=== PATIENT | female | born 1990 | race Caucasian/White ===

== ENCOUNTER 2025-06-25 16:45 | Emergency (ER) | payer SELFPAY ==
[2025-06-25 16:55] VITALS: BP 106/76; PULSE 81; RESP 18; TEMP 36.9; O2SAT 99; BMI 29.1
--- OUTSIDE RECORDS SUMMARY | 2025-06-25 17:10 | XMS_ITS | Clinical Summary ---
Author Organization [facility] Address [address] [place] [address] Care Team Providers Care New Account Interviewer Name Role Phone Unavailable Primary Care Provider Unavailabl e Source Comments [facility] is fully rolled out with thefollowing exceptions:General Clinical Research [facility] Social History Tobacco Use Types Packs/Day Years Used Date Smoking Tobacco: Never Assessed Comments Unknown Sex and Gender Information Value Date Recorded Sex Assigned at Not on file Legal Sex Female 2:07 PM EDT Gender Identity Not on file Sexual Orientation Not on file Plan of Treatment Health Maintenance Due Date Last Done Comments MMR IMMUNIZATION (1 of 1 - S tandard series) 1989 DTAP/Tdap/Td IMMUNIZATION (1 - Tdap) 1995 VARICELLA IMMUNIZATION (1 of 2 - 13+ 2-dose series) 2001 HEPATITIS B IMMUNIZATION (1 of 3 - 19+ 3-dose series) 2007 HPV IMMUNIZATION (1 - 3-dose SCDM series) 2015 COVID-19 Vaccine ( - 2023-2 5 season) 2024 AMB SEASONAL FLU VACCINE (#1) 08/25/2025 HIB IMMUNIZATION Aged Out No longer e ligible based on patient's age to complete this topic IPV IMMUNIZATION Aged Out No longer e ligible based on patient's age to complete this topic MCV4 IMMUNIZATION Aged Out No longer eligible based on patient's age to complete this topic MENINGOCOCCAL B VACCINE Aged Out No l onger eligible based on patient's age to complete this topic PNEUMOCOCCAL IMMUNIZATION Aged Out No longer eligible based on patient's age to complete this topic Respiratory Syncytial Virus (RSV) <20mo Aged Out No longer eligible b ased on patient's age to complete this topic
--- OUTSIDE RECORDS SUMMARY | 2025-06-25 17:10 | XMS_ITS ---
Author Organization [facility] Address [address] [place] [address] Care Team Providers Care Briquetting Machine Operator Name Role Phone Unavailable Primary Care Provider Unavailabl e Transplant Episode Kidney Potential Donor [facility] ([place], [place]) - [facility] Referred on 02/02/2025 Marked as Deferred on 02/05/2025 Reason: Medical Contraindication Kidney CoordinatorBarbie Schultz R.N. Phone: N/A Fax: N/A Email: N/A Care Team Name Role Phone Fax Email Barbie Schultz R.N. Kidney Coordinator N/A N/A N/A Events Pre-Donation Referred: 02/02/2025
--- OUTSIDE RECORDS SUMMARY | 2025-06-25 17:10 | XMS_ITS | Clinical Summary ---
Author Organization [facility] Address [address] [place] [address] Phone Care Team Providers Care Apartment Rental Clerk Name Role Phone Flo Hernandez MD Primary Care Provider [phone] Renata Magaña MD Unavailable [phone] RadCarlie parham MD Unavailable [phone] Allergies Active Allergy Reactions Criticality Noted Date Comments Dhe Other (See Comments) High 11/01/2013 Heart rate dropped into the 30's Sulfa (Sulfonamide Antibiotics) Other (See Comments) 05/07/2016 Chest pain to two other medications containing sulfa. Has not reacted to Bactrim 1 x in the past Medications methylPREDNISol one (MEDROL DOSPACK) 4 mg Oral Tablets, Dose PackIndications :Contusion of left elbow, initial encounter follow package directions 21 Tablet 4 Active Additional Information Patient not taking.Reason: Therapy Completed, Reported on 09/25/2024 meloxicam (MOBIC) 15 mg Oral TabletIndicatio ns:Contusion of left elbow, initial encounter,Forea rm strain, left, initial encounter,Shoul karis strain, left, initial encounter Take 1 tablet by mouth once a day with meal. 30 Tablet 4 Active Additional Information Patient not taking.Reason: Therapy Completed, Reported on 09/25/2024 PARoxetine (PAXIL) 20 mg Oral TabletIndicatio ns:Premature menopause Take 1 Tablet by mouth nightly. 90 Tablet 5 Active rimegepant (NURTEC ODT) 75 mg Oral Tablet, Rapid Dissolve Take 1 Tablet by mouth daily as needed (migraine) for up to 180 days. 15 Tablet 5 5 06/12/20 25 Active Problems Problem Noted Date Diagnosed Date Endometriosis 10/29/2022 Dyspareunia in female 10/05/2022 Overview (10/05/2022): Added automatically from request for surgery [id number] Cysts of both ovaries 10/05/2022 Overview (10/05/2022): Added automatically from request for surgery [id number] Major depressive disorder, recurrent episode, mi ld 06/18/2022 Assessment & Plan (06/18/2022 1:29 PM EDT): Increased paxil to 20 mg which helps with depressive symptoms. Add wellbutrin 100 mg in AM to help with energy level. Discussed potential side effects of taking both medications. FHx: breast cancer in first degree relative 11/25 Overview (12/09/2021): Mother at age 40 Calculus of gallbladder with acute on chronic cholecystitis without obstruction 09/24/2020 Pelvic adhesions 09/30/2016 Migraine, unspecified, with intractable migraine, so stated, without mention of status migrainosus 03/14/2014 Assessment & Plan (03/10/2024 2:50 PM EDT): Qulipta samples 60 mg - will call with tolerability. Assessment & Plan (01/20/2021 1:18 PM EDT): Continue with Emgality. Given sample of Nurtec-ODT to try (2 pills). If no relief, may try Ubrelvy 50 mg. To call back with report on how well the medication works. Lupus anticoagulant disorder 11/23/2013 Acute left-sided weakness 10/28/2013 Vertigo 10/28/2013 Complicated migraine 10/28/2013 Thrombosis complicating and/or puerper ium 01/01/2012 Pelvic pain in female 01/01/2012 Previous section co mplicating , with delivery 07/27/2011 Neck pain Assessment & Plan (12/21/2019 10:46 AM EST): No evidence of infection. At this point it appears she may just have had some fluid shift under the skin in the muscle most likely pulled thereby gravity. Suspect this is related to the trigger point injection we gave her 2 days ago. She has no limitation of her muscle and actually it is much looser and improved over previous. She has no signs of active infection. Recommended just put heat on the area but to call us back if she develops any redness, induration, fevers. Resolved Problems Problem Noted Date Diagnosed Date Resolved Date Otitis media 11/07/2012 12/27/2012 URI (upper respiratory infection) 11/07/2012 12/27/2012 DUB (dysfunctional uterine bleeding) 01/01/2012 10/29/2022 Encounter for sterilization 10/13/2011 10/29/2022 Overview (08/12/2022): Replaced inactive diagnosis term via diagnosis import Chronic wound of head, neck, or trunk 08/31/2011 01/20/2021 Leg pain 07/03/2010 12/27/2012 Panic attacks 12/27/2012 Lupus 11/23/2013 Assessment & Plan (06/01/2011 11:37 AM EDT): Anticoagulant. Encounters Date Type Department Care Team Description 04/15/2025 Refill [facility] [address] [address] Claudia Hernandez MD Medication Refill from Last 3 Months Immunizations Immunization Administration Dates Next Due Hepatitis B (Recombinant), Adjuvanted 03/23/2024 Influenza Patient Reported 08/23/2017 Influenza Seasonal Injectable PF 07/29/2011 Influenza Vaccine Quadrivalent 08/21/2020 Influenza, Split (Incl. Babita fied Surface Antigen) 09/20/2024,08/26/2023,08/24/2022,2018 MMR 03/23/2024 Pfizer SARS-CoV-2 Vaccine 12 + Yrs (Purple Cap) 01/18/2021,12/28/2020 Tdap 03/10/2024,07/29/2011 Surgical History Surgery Date Site/Laterality Comments TONSILLECTOMY OTHER SURGICAL HISTORY Essure PELVIC LAPAROSCOPY HERNIA REPAIR SECTION x 3 HYSTERECTOMY 09/30/2016 N/A ROBOTIC ASSISTED LAPAROSCOPIC TOTAL HYSTERECTOMY BILATERAL SALPINGECTOMY; Surgeon: Travis Davidson MD; Location: [facility] MAIN OR; Service: Gynecology CHOLECYSTECTOMY 09/24/2020 N/A Robotic Cholecystectomy; Surgeon: Jamel Forde DO; Location: [facility] MAIN OR; Service: General Medical History Medical History Date Comments Lupus Factor 5 Leiden mutation, heterozygous Migraines Panic attacks Clotting disorder factor five & lupus anticogoagulant Post-operative nausea and vomiting Family History Medical History Relation Name Comments Cancer Father Gabino Cuevas Skin cancer Cancer Maternal Grandmother Tereza Peacock Skin ca ncer Anesth Problems Mother Modesta Peacock difficult in tubation Breast Cancer Mother Modesta Peacock Clotting Disorder Mother Modesta Peacock factor 5 Thyroid Disease Sister Colon Cancer Neg Hx Ovarian Cancer Neg Hx Uterine Cancer Neg Hx Relation Name Status Comments Brother Alive Father Gabino Cuevas Alive Maternal Grandfather Alive Maternal Grandmother Tereza Peacock Alive Mother Modesta Peacock Alive Paternal Grandfather Alive Paternal Grandmother Alive Sister Alive Social History Tobacco Use Types Packs/Day Years Used Date Smoking Tobacco: Never Passive Smoke Exposure: Never Smokeless Tobacco: Never Tobacco Cessation:Counseling Given: Not Answered Alcohol Use Standard Drinks/Week Comments No 0 (1 standard drink = 0.6 oz pur e alcohol) rarely Overall Financial Resource Strain (CARDIA) Answe r Date Recorded How hard is it for you to pa y for the very basics like food, housing, medical care, and heating? Not hard at all 01/21/2021 PHQ-2 Answer Date Recorded PHQ-2 Score 0 11/14/2019 [facility] Occupat ional Health - Occupational Stress Questionnaire Answer Date Recorded Do you feel stress - tense, restless, nervous, or anxious, or unable to sleep at night because your mind is troubled all the time - these days? Not at all 01/21/2021 Exercise Vital Sign Answer Date Recorde d On average, how many days pe r week do you engage in moderate to strenuous exercise (like a brisk walk)? 5 days 01/21/2021 On average, how many minutes do you engage in exercise at this level? 30 min 01/21/2021 Hunger Vital Sign Answer Date Recorded Within the past 12 months, y ou worried that your food would run out before you got the money to buy more. Never true 01/22/20 21 Within the past 12 months, t he food you bought just didn't last and you didn't have money to get more. Never true 01/21/2021 PRAPARE - Transportation Answer Date Re corded In the past 12 months, has l ack of transportation kept you from medical appointments or from getting medications? No 12/25 In the past 12 months, has l ack of transportation kept you from meetings, work, or from getting things needed for daily living? No 01/21/2021 Sexually Active Control Partners Comments Yes Surgical Male Hysterectomy Comments No Sex and Gender Information Value Date Recorded Sex Assigned at Not on file Legal Sex Female 11:34 PM EDT Gender Identity Not on file Sexual Orientation Not on file Obstetrics History Para Term AB IAB SAB Ectopic Multiple Livin g Live Births 3 3 1 0 0 0 0 0 3 3 Date Outcome GA Total Labor Labor/2nd/3rd Weight Sex Type Anes PTL Latia A1 A5 Name Clin 2005 Para M CS-Un spec Livin g 2007 Para M CS-Un spec N Livin g 2010 Term 39w 1d 0h 01m 9 lb 12.6 oz (4.44 kg) M CS-Un spec Livin g 5 8 SEBAST SAIGE,ALESSIA Y A KATHRY N Todd Francis MD Delivery Location:[facility] Comments:bruising to s calp; lef muslim & ear Last Filed Vital Signs Vital Sign Reading Time Taken Comments Blood Pressure 112/74 09/25/2024 4:28 PM EST Pulse 76 09/25/2024 4:28 PM EST Temperature 36.6 C (97.9 F) 09/25/2024 4:28 PM EST Respiratory Rate 14 09/25/2024 4:28 PM EST Oxygen Saturation 98% 09/25/2024 4:28 PM EST Inhaled Oxygen Concentration - - Weight 87.5 kg (193 lb) 09/25/2024 4:28 PM EST Height 165.1 cm (5' 5 ) 09/25/2024 4:28 PM EST Body Mass Index 32.12 09/25/2024 4:28 PM EST Plan of Treatment Upcoming Encounters Date Type Department Care Team (Late st Contact Info) Description 08/07/2025 2:00 PM EDT Office Visit [facility] [address] [place] [phone] Claudia Hernandez MD [address] [place] [address] Health Maintenance Due Date Last Done Comments Cologuard 1988 Sigmoidoscopy 1988 Virtual Colonography 1988 Annual Wellness Exam 1991 Hepatitis B Vaccine (2 of 2 - CpG 2-dose series) 04/20/2024 03/23/2024 FIT 05/26/2024 05/26/2023 COVID-19 Vaccine ( season) 2024 01/18/2021, 12/28/2020 Influenza Vaccine (#1) 2025 , 08/26/2023, 08/24/2022, Additional history exists Colon Cancer Screening 10/12/2028 Colonoscopy 10/12/2028 10/14/2023 DTaP/TDaP/Td (3 - Td or Tdap) 03/10/2034 03/10/2024, 07/29/2011 Meningococcal B Vaccine Aged Out No l onger eligible based on patient's age to complete this topic Pneumococcal Vaccine 0-49 Aged Out No longer eligible based on patient's age to complete this topic Goals Goal Patient Goal Type Associated Problems Recent Progress Patient-Stated? Author Maintain a healthy diet, exercise regularly and maintain an ideal body weight General No Maranda Martinez Medical Devices Explanted Type Area Computer Numerical Control Grinder Device Identifier Shelf Expiration Date Model / Serial / Lot Essure Explanted:2015 (Quantity not on file) Procedures Procedure Name Priority Date/Time Associated Diagnosis Comments COLONOSCOPY Routine 10/14/2023 2:49 PM EST Chronic diarrhea FECAL HEME (FIT) CANCER SCREEN Routine 05/26/2023 3:30 AM EDT Chronic diarrhea from Last 3 Months or Most Recently Relevant to Health Maintenance Results * COLONOSCOPY (10/14/2023 2:49 PM EST) Anatomical Region Laterality Modality Endoscopy Narrative 10/14/2023 2:52 PM EST Table formatting from the original result was not included. Findings The terminal ileum appeared normal. The entire colon appeared normal. Performed random biopsy using biopsy forceps. Biopsies performed to rule out microscopic colitis One 6 mm sessile polyp in the rectum; no bleeding was identified; performed cold snare with complete en bloc removal and retrieved specimen Internal small hemorrhoids; no bleeding was identified Recommendation Await pathology results Repeat colonoscopy in 5 years Follow up with PCP Follow up with me in clinic Impression The terminal ileum appeared normal. The entire colon appeared normal. Performed random biopsy using biopsy forceps. Subcentimeter polyp in the rectum was removed with cold snare Small hemorrhoids Indication Chronic diarrhea Staff Staff Role Sreedhar Ji MD Performing Provider Marita Rucker RN Yard Caller Pedrito Meza MD Anesthesiologist Demetrius Contreras RN Endoscopy Nurse Cesia Lopez CRNA ACID ETCH OPERATOR Medications See Anesthesia Record. Preprocedure A history and physical has been performed, and patient medication allergies have been reviewed. The patient's tolerance of previous anesthesia has been reviewed. The risks and benefits of the procedure and the sedation options and risks were discussed with the patient. All questions were answered and informed consent obtained. ASA 3 - Patient with severe systemic disease Details of the Procedure The patient underwent monitored anesthesia care, which was administered by an anesthesia professional. The patient's blood pressure, heart rate, level of consciousness, oxygen, respirations, ECG and ETCO2 were monitored throughout the procedure. A digital rectal exam was performed. The scope was introduced through the anus and advanced to the cecum. Retroflexion was performed in the rectum. Bowel prep was adequate. The patient's estimated blood loss was minimal (<5 mL). The procedure was not difficult. The patient tolerated the procedure well. There were no apparent adverse events. Patient provided education and educated on specific discharge instructions. Patient educated on medications given during the procedure and new medications for discharge. Patient verbalizes understanding of discharge education. Patient stable and awaiting transport for discharge. Events Procedure Events Event Event Time ENDO SCOPE IN TIME 10/14/2023 2:19 PM ENDO SCOPE OUT TIME 10/14/2023 2:27 PM ENDO SCOPE IN TIME 10/14/2023 2:31 PM ENDO CECUM REACHED 10/14/2023 2:35 PM ENDO SCOPE OUT TIME 10/14/2023 2:45 PM Specimens ID Type Source Tests Collected by Time 1 : Duodenal biopsy via forceps Tissue Duodenal bulb PATHOLOGY TISSUE REQUEST Sreedhar Ji MD 10/14/2023 1422 2 : Gastric biopsy via forceps Tissue Gastric PATHOLOGY TISSUE REQUEST Sreedhar Ji MD 10/14/2023 1426 3 : Random colon biopsies via forceps Tissue Colon PATHOLOGY TISSUE REQUEST Sreedhar Ji MD 10/14/2023 1439 4 : Rectal polyp via cold snare Tissue Large Intestine, Rectum PATHOLOGY TISSUE REQUEST Sreedhar Ji MD 10/14/2023 1445 Anesthesia Event Time In Patient In - Proc. Room 02:08 PM Sreedhar Ji MD ENDOSCOPY PROCEDURE ORDERAB LES Final Result * FECAL HEME (FIT) CANCER SCREEN (05/26/2023 3:30 AM EDT) Fecal Immunochemical Test Negative Negative 05/26/2023 10:30 PM EDT PREFERRED Connected [employer] Stool COLON STRUCTURE / Unknown 05/26/2023 3:30 AM EDT 05/26/2023 4:22 PM EDT Sreedhar Ji MD IMMUNOLOGY ORDERABLES Final Result PREFERRED [employer] [address] [facility] , [place] [address] from Last 3 Months or Most Recently Relevant to Health Maintenance Insurance [facility] Advance Directives For more information, please contact: [phone] * Full Code (Latest Code Status on File) Date Activated Date Inactivated Comments 09/30/2016 5:33 PM 10/01/2016 7:27 PM Care Teams Apartment Rental Clerk Relationship Specialty Start Date End Date Flo [place] [address] [place] [id number] PCP - General 08/19/09 Renata Magaña MD [address] [facility] Building [address] [place] [address] Internal Medicine-Rheumatology 04/01/16 Carlie Leroy MD [address] [place] [address] [place], [place] [id number] Internal Medicine-Medical Oncology 04/25/24
--- NOTE | 2025-06-25 17:11 | XR_ITS ---
PROCEDURE INFORMATION: Exam: XR Left Shoulder Exam date and time: 06/25/2025 5:52 PM Age: 35 years old Clinical indication: Pain; Other: Axilla area; Additional info: Pain inferior/ axilla region TECHNIQUE: Imaging protocol: Radiologic exam of the left shoulder. Views: 2 or more views. COMPARISON: No relevant prior studies available. FINDINGS: Bones/joints: No acute fracture. No dislocation. Lungs: Calcified hilar lymph nodes. Probable tiny calcified granuloma within LEFT upper lobe. Soft tissues: Unremarkable. IMPRESSION: No fracture. If pain persists, consider MRI for further evaluation.
--- NOTE | 2025-06-25 17:11 | XR_ITS ---
PROCEDURE INFORMATION: Exam: XR Left Ribs with PA Chest Exam date and time: 06/25/2025 5:48 PM Age: 35 years old Clinical indication: Pain; Other: L rib area; Additional info: Axillary pain left TECHNIQUE: Imaging protocol: Radiologic exam of the left ribs with PA chest. Views: 3 views COMPARISON: No relevant prior studies available. FINDINGS: Lungs: No consolidation. Probable tiny calcified granuloma within LEFT upper lobe. Pleural spaces: No significant pleural effusion. No pneumothorax. Heart/Mediastinum: No cardiomegaly. Calcified hilar lymph nodes. Bones/joints: No acute fracture. IMPRESSION: No definite acute cardiopulmonary disease.
--- OUTSIDE RECORDS SUMMARY | 2025-06-25 17:11 | XMS_ITS | Encounter Summary ---
Author Organization [facility] Address [address] [place] [address] Care Team Providers Care Front Edger Name Role Phone Todd Francis MD Unavailable [phone] Flo Hernandez MD Primary Care Provider [phone] Encounter Details Date Type Department Care Team (Late st Contact Info) Description 04/06/2024 [facility] [address] [place] [address] Madhuri Rivera [address] [facility] Level A - Food & [place] [address] Social History Tobacco Use Types Packs/Day Years Used Date Smoking Tobacco: Never Smokeless Tobacco: Never Alcohol Use Standard Drinks/Week Comments No 0 (1 standard drink = 0.6 oz pur e alcohol) Comments No Sex and Gender Information Value Date Recorded Sex Assigned at Not on file Legal Sex Female 7:12 PM EST Gender Identity Not on file Sexual Orientation Not on file documented as of this encounter Miscellaneous Notes * Donor Eval Phase - Madhuri Rivera - 04/06/2024 9:30 AM EDT TRANSPLANT NUTRITION ASSESSMENT FORM Name: Christal Bessy MONTANO Date of :1990 (Each patient who is evaluated for an organ transplant is assessed by a Registered Dietitian.) Pretransplant nutrition self assessment form completed. Reviewed by RDN. _X__ No pertinent nutrition needs at this time. ___ Pertinent nutrition needs at this time: n/a RDN provided: n/a Reviewed By Madhuri Rivera RD,LD Secure chat documented in this encounter Plan of Treatment Not on file documented as of this encounter Visit Diagnoses Not on filedocumented in this encounter Care Teams Front Edger Relationship Specialty Start Date End Date Flo Hernandez MD [facility] [place] [address] PCP - General Internal Medicine 03/23/24 Todd Francis MD [address] [place] [address] Obstetrics & Gynecology 11/01/22 documented as of this encounter
--- OUTSIDE RECORDS SUMMARY | 2025-06-25 17:11 | XMS_ITS | Encounter Summary ---
Author Organization [facility] Address [address] [place] [address] Care Team Providers Care Insole Tack Puller Hand Name Role Phone Todd Francis MD Unavailable [phone] Flo Hernandez MD Primary Care Provider [phone] Encounter Details Date Type Department Care Team (Late st Contact Info) Description 04/06/2024 [facility] [address] [place] [address] CarterHalley weiner [address] [place] [address] Social History Tobacco Use Types Packs/Day Years [...] on file documented as of this encounter Plan of Treatment Not on file documented as of this encounter Visit Diagnoses Not on filedocumented in this encounter Care Teams Insole Tack Puller Hand Relationship Specialty Start Date End Date Flo Hernandez MD [address] [place] [phone] PCP - General Internal Medicine 03/23/24 Todd Francis MD [address] [place] [address] Obstetrics & Gynecology 11/01/22 documented as of this encounter
--- OUTSIDE RECORDS SUMMARY | 2025-06-25 17:11 | XMS_ITS | Encounter Summary ---
Author Organization [facility] Address [address] [place] [address] Care Team Providers Care Kiln Remover Name Role Phone Todd Francis MD Unavailable [phone] Flo Hernandez MD Primary Care Provider [phone] Encounter Details Date Type Department Care Team (Late st Contact Info) Description 03/24/2024 [facility] [address] [place] [address] CarterHalley weiner [address] [place] [address] Social History Tobacco Use Types Packs/Day Years [...] on filedocumented in this encounter Care Teams Kiln Remover Relationship Specialty Start Date End Date Flo Hernandez MD [address] [place] [phone] PCP - General Internal Medicine 03/23/24 Todd Francis MD [address] [place] [address] Obstetrics & Gynecology 11/01/22 documented as of this encounter
--- OUTSIDE RECORDS SUMMARY | 2025-06-25 17:11 | XMS_ITS | Encounter Summary ---
Author Organization [facility] Address [address] [place] [address] Care Team Providers Care Senior Director Name Role Phone Todd Francis MD Unavailable [phone] Flo Hernandez MD Primary Care Provider [phone] Encounter Details Date Type Department Care Team (Late st Contact Info) Description 03/27/2024 [facility] [address] [place] [address] CarterHalley weiner [address] [place] [address] Social History Tobacco Use Types Packs/Day Years [...] on filedocumented in this encounter Care Teams Senior Director Relationship Specialty Start Date End Date Flo Hernandez MD [address] [place] [phone] PCP - General Internal Medicine 03/23/24 Todd Francis MD [address] [place] [address] Obstetrics & Gynecology 11/01/22 documented as of this encounter
--- OUTSIDE RECORDS SUMMARY | 2025-06-25 17:11 | XMS_ITS | Clinical Summary ---
Author Organization [facility] Address [address] [place] [id number] Care Team Providers Care Cable Braider Name Role Phone Todd Francis MD Unavailable [phone] Flo Hernandez MD Primary Care Provider [phone] Allergies No known active allergies Medications No known medications Active Problems Problem Noted Date Diagnosed Date Encounter for sterilization 10/13/2011 Overview (01/15/2017): Replaced inactive diagnosis term via diagnosis import Previous section co mplicating , with delivery 07/27/2011 Immunizations Immunization Administration Dates Next Due Influenza 07/29/2011 Tdap 07/29/2011 Family History Medical History Relation Name Comments Cancer Father Cancer Maternal Grandfather Cancer Maternal Grandmother Cancer Mother Anesthesia Complications Neg Hx Heart Problems Neg Hx Relation Name Status Comments Father Maternal Grandfather Maternal Grandmother Mother Social History Tobacco Use Types Packs/Day Years Used Date Smoking Tobacco: Never Smokeless Tobacco: Never Alcohol Use Standard Drinks/Week Comments No 0 (1 standard drink = 0.6 oz pur e alcohol) Comments No Sex and Gender Information Value Date Recorded Sex Assigned at Not on file Legal Sex Female 7:12 PM EST Gender Identity Not on file Sexual Orientation Not on file Last Filed Vital Signs Vital Sign Reading Time Taken Comments Blood Pressure 120/73 04/03/2024 2:40 PM EDT Pulse 81 04/03/2024 2:40 PM EDT Temperature 37.1 C (98.7 F) 04/03/2024 2:28 PM EDT Respiratory Rate 16 04/03/2024 2:28 PM EDT Oxygen Saturation 98% 04/03/2024 2:28 PM EDT Inhaled Oxygen Concentration - - Weight 90.4 kg (199 lb 4.8 oz) 04/03/2024 2:28 P M EDT Height 165.1 cm (5' 5 ) 04/03/2024 2:28 PM EDT Body Mass Index 33.17 04/03/2024 2:28 PM EDT Plan of Treatment Health Maintenance Due Date Last Done Comments Cervical Cancer Screening 2009 COVID-19 Vaccine ( season) 2024 01/18/2021, 12/28/2020 Depression Screening 10/25/2024 Influenza Vaccination (#1) 2025 07/29/2011 Lipid Screening 04/21/2029 04/21/2024 Tetanus Vaccination (Every 10 Years) 03/10/2034 03/10/2024, 07/29/2011 HPV Vaccine Aged Out No longer eligi ble based on patient's age to complete this topic Medical Devices Implanted Type Area Utility Clerk Device Identifier Shelf Expiration Date Model / Serial / Lot Sys Cntrl Perm Essure Implanted:Qty : 2 on 10/13/2011 at [facility] 8 OR Bilateral: Fallopian Tube * [employer] [id number] / / [id number] [place] * Guarantor: Margaret Gilmore Account Type Relation to Patient Date of Phone Billing Address [facility] [address] [place] [facility] [employer] MEDICARE Care Teams Cable Braider Relationship Specialty Start Date End Date Flo Hernandez MD COUNTRY [facility] [place] [id number] PCP - General Internal Medicine 03/23/24 Todd Francis MD [address] [place] [address] Obstetrics & Gynecology 11/01/22
--- OUTSIDE RECORDS SUMMARY | 2025-06-25 17:11 | XMS_ITS | Encounter Summary ---
Author Organization [facility] Address [address] [place] [id number] Care Team Providers Care Strap Machine Operator Name Role Phone Todd Francis MD Unavailable [phone] Flo Hernandez MD Primary Care Provider [phone] Encounter Details Date Type Department Care Team (Late st Contact Info) Description 04/11/2024 [facility] [address] [place] [address] [address] [place] [address] Social History Tobacco Use Types Packs/Day Years [...] on filedocumented in this encounter Care Teams Strap Machine Operator Relationship Specialty Start Date End Date Flo Hernandez MD [place]TRY [address] [place] [id number] PCP - General Internal Medicine 03/23/24 Todd Francis MD [address] [place] [address] Obstetrics & Gynecology 11/01/22 documented as of this encounter
--- NOTE | 2025-06-25 18:37 | ED_ITS ---
<Statement entered by Db Cabrales MD - 06/25/25 23:17> I was consulted by the MAGALIS, and we discussed the complexity of the problems being addressed. I approved the treatment and management plan for this patient's care in the emergency department, thus performing a substantive portion of the medical decision making. Db Cabrales MD Discharge Plan Disposition Patient Disposition: Home, Self-Care Condition: Good Referrals Follow up/Referrals: Flo Hernandez [Primary Care Provider, Medical] - See instructions Rehan Chao DO [Staff Physician, Orthopedics] - See instructions Activity Restrictions/Add. Instructions Additional Instructions/Restrictions: You were seen for shoulder pain. Please follow up with orthopedics. Return to the ER for any redness, swelling or chest pian. Clinical Impressions Clinical Impression: Acute shoulder pain Instructions Patient Instructions: DI for Shoulder Pain Print Language Print Language: Serbian Discharge ED Provider: Db Cabrales General Adult HPI General Chief complaint: PAIN Stated complaint: Left shoulder pain Time Seen by Provider: 06/25/25 17:01 Mode of Arrival: Ambulatory Source of Information: Patient Description of Symptoms (Recalled from ER Triage Doc. by RN): Pt presents for evaluation of left shoulder pain x couple of days with the pain becoming worse yesterday. Rates pain as a 7.5/10. Pt states she is unable to move her left arm. denies any injury History of Present Illness HPI narrative: Patient presents with pain in the left axilla. She reports decreased range of motion. The pain is described as aching. Pain has been ongoing for several days. Denies any known injury. She does work as a caregiver, however feels like she has not been doing a lot of lifting or tugging. complaint: shoulder pain Onset (ago): day(s) Location: left and upper extremity Severity: moderate Quality: aching Consistency: constant Relieving factors: rest Exacerbating factors: movement Associated symptoms: denies other symptoms [facility] Disclaimer: The information contained in this section may have been updated after the patient was seen, as this information can be updated by other users. Social History (Updated 06/25/25 @ 18:40 by GIANA Ibrahim) Smoking Status: Never smoker alcohol intake: never current occupational status: other Travel in the last 8 weeks?: None Have you lived/traveled outside [place] in past 30 days?: No Contact w/someone who lives/traveled outside US past 30 days?: No Exposure to someone with infectious disease in past 14 days?: No Do you have a fever (greater than 100.4 F or 38 C)?: No Have you tested positive for COVID-19?: No Exposed to someone with COVID-19 in past 14 days?: No Do you have a sore throat?: No Do you have a cough?: No Do you have any weakness?: No Do you have any diarrhea?: No Are you experiencing any unusual bleeding?: No Do you have any muscle aches/pain?: No Do you have any abdominal pain?: No Are you experiencing loss of taste or smell?: No ROS Obtained: Yes Systems reviewed as appropriate & no additional complaints except as documented Physical Exam General General appearance: alert and in no apparent distress Head Head exam: atraumatic and normocephalic Eye Eye exam: Present normal appearance and EOMI Chest Chest inspection: Present symmetric chest wall rise Respiratory Respiratory exam: Present normal lung sounds bilaterally; Absent wheezes or stridor Cardiovascular Cardiovascular exam: Present regular rate and normal rhythm; Absent systolic murmur Expanded Upper Extremity Exam Left: Shoulder exam: Present normal inspection and other (TTP in the anterior axilla ); Absent full ROM (limited external and internal rotation ), swelling or erythema Neurological Exam Neurological exam: Present alert and oriented X3 Psychiatric Psychiatric exam: Present normal affect and normal mood Skin Skin exam: Present warm, dry and intact Medical Decision Making Medical Records Screening: Per USPSTF and CDC recommendations, given the prevalence of disease in our region, it is our hospital?s policy to screen for HIV and viral Hepatitis for all patients aged 18 and over and those with ongoing risk factors. Ryan Inquiry Pt receiving controlled substance: No Vital Signs: 06/25/25 16:55 06/25/25 18:51 Temperature 98.4 F 98.4 F Temperature Source Temporal Artery Scan Pulse Rate 80 Pulse Rate [Right] 81 Respiratory Rate 18 20 Blood Pressure 128/79 Blood Pressure [Right Arm] 106/76 L Blood Pressure Mean [Right Arm] 86 Blood Pressure Source [Right Arm] Automatic Cuff Blood Pressure Position [Right Arm] Sitting 02 Sat by Pulse Oximetry 99 Oxygen Delivery Method Room Air Room Air Orders (Tests/Meds): ED MEDICATIONS Discontinued Medications Generic Name Dose Route Start Last Admin Trade Name Freq PRN Reason Stop Dose Admin Acetaminophen 1,000 mg 06/25/25 18:34 06/25/25 18:44 Acetaminophen 500mg Tab PO 06/25/25 18:35 1,000 mg ONCE ONE Administration Dexamethasone Sodium Phosphate 8 mg 06/25/25 18:35 06/25/25 18:43 Dexamethasone 4mg/Ml 5ml Mdv IM 06/25/25 18:36 8 mg ONCE ONE Administration Ibuprofen 600 mg 06/25/25 18:34 06/25/25 18:43 Ibuprofen 600 Mg Tablet PO 06/25/25 18:35 600 mg ONCE ONE Administration ORDERS Category Date Time Status Shoulder XR left minimum 2 views [XR shoulder LT min 2V Exams 06/25/25 17:11 Taken ] Stat XR ribs LT min 3V w CXR1V Stat Exams 06/25/25 17:11 Taken Medical Decision Narrative: In summary patient is a 35-year-old who presents the emergency department for evaluation of shoulder pain. Patient is hemodynamically stable upon arrival, afebrile. Tenderness to the anterior axilla. Differential diagnosis includes shoulder strain, contusion, dislocation, rib fracture. Initial workup will be conducted with x-ray of shoulder and ribs. Initial inventions include Decadron, Tylenol, ibuprofen. Initial workup reviewed by me x-ray unremarkable. Upon repeat evaluation patient resting,. Given this patient is appropriate for discharge home at this time with return precautions and advised to follow-up with orthopedics. Given a sling for comfort as well. I personally interpreted the left shoulder and left rib xrays which were negative for fracture. Critical Care Critical Care Time Critical Care Time: No
[2025-06-25] MEDS: DEXAMETHASONE 4MG/ML 5ML MDV 8 MG IM (18:43)
[2025-06-25] MEDS: IBUPROFEN 600 MG TABLET PO (18:43)
[2025-06-25] MEDS: ACETAMINOPHEN 500MG TAB 1000 MG PO (18:44)
[2025-06-25 18:51] VITALS: BP 128/79; PULSE 80; RESP 20; TEMP 36.9; O2SAT 98
== END 2025-06-25 18:52 | disposition home or self-care (01) ==
PROVIDERS: Emergency Provider Emergency Medicine; PCP Pediatrics
DX: M25.512 Pain in left shoulder (principal)
CPT/HCPCS: 71101; 73030; 96372; 99282; 99284; J1100